=== PATIENT | female | born 1965 | race Caucasian/White ===

== ENCOUNTER 2018-07-17 07:57 | Day surgery (SDC) | payer MEDICARE, BC, MEDICAID ==
[2018-07-17] MEDS ORDERED: FENTAnyl 50 MCG/ML VIAL IV (09:00)
[2018-07-17] MEDS ORDERED: ONDANSETRON 4 MG INJ IV (09:00)
[2018-07-17] MEDS ORDERED: FENTAnyl 50 MCG/ML VIAL (09:08)
[2018-07-17] MEDS ORDERED: PROPOFOL 20 ML (09:08)
== END 2018-07-17 12:59 | disposition home or self-care (01) ==
LOC: GIL 07:57
DX: R19.4 Change in bowel habit (principal); K64.8 Other hemorrhoids; E11.9 Type 2 diabetes mellitus without complications
CPT/HCPCS: 45378; 82962